=== PATIENT | male | born 1945 | race Caucasian/White ===

== ENCOUNTER 2019-05-17 18:28 | Emergency (ER) | payer OTHER ==
[~2019-05-17] VITALS: Ht 182.9 cm; Wt 117.9 kg
[~2019-05-17 18:28] MED LIST: ASTAXANTHIN4 MG PO; Aspirin EC81 MG PO; CO Q10200 MG PO; DILTIAZEM 24HR120 MG PO; IBUP800 PO; LOVA40 PO; Multiple Vitam1 EAC1 PO; PANT40 PO; Viagra100 MG PO; Zestril40 MG PO
[2019-05-17 19:18] LABS: BASOPHILS ABSOLUTE AUTO 0.05 K/mm3 (0.00-0.23); BASOPHILS PERCENT AUTO 0 % (0-2); EOSINOPHILS ABSOLUTE AUTO 0.05 K/mm3 (0.00-0.68); EOSINOPHILS PERCENT AUTO 0 % (0-6); Hematocrit 45.8 % (37.0-53.0); Hemoglobin 14.9 g/dL (13.5-17.5); IMMATURE GRAN ABSOLUTE AUTO 0.05 K/mm3 (0.00-0.10); IMMATURE GRAN PERCENT AUTO 0 % (0-1); LYMPHOCYTES ABSOLUTE AUTO 0.88 K/mm3 (0.84-5.20); LYMPHOCYTES PERCENT AUTO 8 % (21-46); MONOCYTES ABSOLUTE AUTO 0.62 K/mm3 (0.16-1.47); MONOCYTES PERCENT AUTO 5 % (4-13); Mean Corpuscular HGB 29.2 pg (26.0-34.0); Mean Corpuscular HGB Conc 32.5 g/dL (31.5-36.5); Mean Corpuscular Volume 90 fL (80-100); Mean Platelet Volume 9.5 fL (9.1-12.4); NEUTROPHILS PERCENT AUTO 86 % (41-73); Platelet Count 269 K/mm3 (150-400); RDW Coefficient Variation 14.2 % (11.7-14.2); RDW Standard Deviation 47.2 fL (35.1-46.3); Red Blood Cell Count 5.11 M/mm3 (4.30-5.90); White Blood Cell Count 11.75 K/mm3 (4.00-11.30)
[2019-05-17 19:37] LABS: Alanine Aminotransfer (ALT/SGP 45 U/L (12-78); Albumin, Blood 3.8 g/dL (3.4-5.0); Alk Phos 127 U/L (50-136); Anion Gap 6 mmol/L (6-16); Aspartate Aminotrans (AST/SGOT 27 U/L (12-37); Bilirubin, Total 0.3 mg/dL (0.1-1.0); Blood Urea Nitrogen 19 mg/dL (8-24); Bun/Creatinine Ratio 26.4 (12.0-20.0); CO2, Blood 24 mmol/L (21-32); Chloride, Blood 112 mmol/L (98-108); Creatinine, Blood 0.72 mg/dL (0.60-1.20); Globulin, Blood 3.9 g/dL (2.2-4.0); Glomerular Filtration Rate >60 (60-); Glucose, Blood 134 mg/dL (70-99); Sodium, Blood 142 mmol/L (136-145); Total Protein, Blood 7.7 g/dL (6.4-8.2)
[2019-05-17 21:59] LABS: Source, Urine Voided
[2019-05-17 22:02] LABS: Bilirubin, Urine Neg (Neg); Blood, Urine 3+ (Neg); Glucose Qualitative, Urine Neg (Neg); Ketones, Urine Neg (Neg); Leukocyte Esterase, Urine Neg (Neg); Nitrite, Urine Neg (Neg); Protein, Urine Neg (Neg); Urobilinogen, Urine 1+ (Normal)
[2019-05-17 22:27] LABS: Appearance, Urine Clear (Clear); Color, Urine Yellow (P-Yellow); White Blood Cells, Urine 0-2 /hpf (0-5)
[2019-05-17 22:28] LABS: Bacteria Few /hpf; Calcium Oxalate Crystals Mod /hpf; Mucus Light (0-Heavy); Squamous Epithelial Cells Not Seen /hpf (Few)
[2019-05-17] MEDS ORDERED: Norco 5-325 Ta1 EACH PO (22:54)
[2019-05-17] MEDS ORDERED: IBUP600 PO (22:54)
[2019-05-17] MEDS ORDERED: Flomax0.4 MG PO (22:54)
== END 2019-05-17 23:15 | disposition home or self-care (01) ==
LOC: ER 18:28
PROVIDERS: Student in an Organized Health Care Education/Training Program
DX: N13.2 Hydronephrosis with renal and ureteral calculous obstruction (principal); Z79.899 Other long term (current) drug therapy; Z79.82 Long term (current) use of aspirin; F17.200 Nicotine dependence, unspecified, uncomplicated
CPT/HCPCS: 36415; 74176; 80053; 81001; 83690; 85025; 96361; 96374; 96375; 99284-25; A9270; A9270-GY; J1885; J2405; J3010; J7030

== ENCOUNTER 2020-07-17 08:24 | Day surgery (SDC) | payer BC ==
[~2020-07-17] VITALS: Ht 182.9 cm; Wt 15.4 kg
[~2020-07-17 08:24] MED LIST changes: +Aspir 8181 MG PO; +DILT120 PO; +Flomax0.4 MG PO; +IBUP600 PO; +LISI20 PO; +MULTIVITAMINS1 EAC3 PO; +Norco 5-325 Ta1 EACH PO; +PRAV20 PO; +SILD50TA PO
== END 2020-07-17 10:28 | disposition home or self-care (01) ==
LOC: ORSCSDS 08:24
PROVIDERS: Surgery
PROC: 0DJD8ZZ Inspection of Lower Intestinal Tract, Via Natural or Artificial Opening Endoscopic (ICD-10-PCS; principal; 2020-07-17 09:45)
DX: Z12.11 Encounter for screening for malignant neoplasm of colon (principal); Z85.038 Personal history of other malignant neoplasm of large intestine; Z86.010 Personal history of colon polyps; I10 Essential (primary) hypertension; E78.5 Hyperlipidemia, unspecified; Z79.82 Long term (current) use of aspirin; Z79.899 Other long term (current) drug therapy; F17.210 Nicotine dependence, cigarettes, uncomplicated
CPT/HCPCS: J2704; J7120

== ENCOUNTER → 2021-12-30 | Outpatient (CLI) | payer BC | END | disposition home or self-care (01) | LOC: LAB SHORT 11:15 → LAB 11:15 | DX: L02.219 Cutaneous abscess of trunk, unspecified (principal) | CPT/HCPCS: 87070; 87205 ==

== ENCOUNTER → 2022-01-09 | Outpatient (CLI) | payer BC | END | disposition home or self-care (01) | LOC: LAB SHORT 12:11 → PLD 12:11 | DX: L72.9 Follicular cyst of the skin and subcutaneous tissue, unspecified (principal) | CPT/HCPCS: 88304 ==

== ENCOUNTER → 2022-01-22 | Outpatient (CLI) | payer BC | END | disposition home or self-care (01) | LOC: LAB SHORT 14:51 → PLD 14:51 | DX: L72.9 Follicular cyst of the skin and subcutaneous tissue, unspecified (principal) | CPT/HCPCS: 88304 ==

== ENCOUNTER → 2022-02-24 | Outpatient (CLI) | payer BC | END | disposition home or self-care (01) | LOC: LAB 07:58 → LAB SHORT 07:58 → PLD 07:58 | DX: D48.5 Neoplasm of uncertain behavior of skin (principal) | CPT/HCPCS: 88304 ==

== ENCOUNTER → 2023-03-10 | Outpatient (CLI) | payer BC, MEDICARE | END | disposition home or self-care (01) | LOC: LAB 12:59 → LAB SHORT 12:59 | DX: L72.0 Epidermal cyst (principal) | CPT/HCPCS: 88304 ==

== ENCOUNTER 2023-07-02 11:09 | Day surgery (SDC) | payer MEDICARE, BC ==
[~2023-07-02] VITALS: Ht 182.9 cm; Wt 101.9 kg
[2023-07-02] MEDS ORDERED: TAMSULOSIN HCL0.4 M1 PO (11:53)
[2023-07-02] MEDS ORDERED: PANTOPRAZOLE SO40 M2 PO (11:53)
--- NOTE | 2023-07-02 12:07 | NUR ---
07/02/23 1207 Lior Diggs CORRECT EYE MARKED PER PATIENT AND CONSENT LEFT EYE . TETRACAINE PLACED IN LEFT EYE AT 1150. PLEGET PLACED IN LEFT EYE AT 1151. PT TOLERATED WELL. CALL LIGHT PLACED IN PT HAND.
[2023-07-02 13:17] VITALS: BP 154/87
== END 2023-07-02 13:26 | disposition home or self-care (01) ==
LOC: ORSCSDS 11:09
PROVIDERS: Ophthalmology
PROC: 08RK3JZ Replacement of Left Lens with Synthetic Substitute, Percutaneous Approach (ICD-10-PCS; principal; 2023-07-02 12:30)
DX: H25.12 Age-related nuclear cataract, left eye (principal); H52.202 Unspecified astigmatism, left eye; H35.30 Unspecified macular degeneration; I10 Essential (primary) hypertension; K21.9 Gastro-esophageal reflux disease without esophagitis; F17.210 Nicotine dependence, cigarettes, uncomplicated; J44.9 Chronic obstructive pulmonary disease, unspecified; E66.9 Obesity, unspecified; Z85.46 Personal history of malignant neoplasm of prostate; Z68.30 Body mass index [BMI] 30.0-30.9, adult; Z79.82 Long term (current) use of aspirin; Z79.899 Other long term (current) drug therapy
CPT/HCPCS: J2250; J3010; J3301; J7040; V2632

== ENCOUNTER 2023-07-16 11:02 | Day surgery (SDC) | payer MEDICARE, BC ==
[~2023-07-16] VITALS: Ht 185.4 cm; Wt 100.3 kg
[~2023-07-16 11:02] MED LIST changes: +PANTOPRAZOLE SO40 M2 PO; +TAMSULOSIN HCL0.4 M1 PO
--- NOTE | 2023-07-16 11:51 | NUR ---
07/16/23 1151 Sujey Goodwin 1 DROP OF TETRACAINE TO THE R EYE AT 1142, PLEDGET PLACED AT 1144 BY [facility]
[2023-07-16 13:28] VITALS: BP 164/93
--- NOTE | 2023-07-16 13:28 | NUR ---
07/16/23 1328 Anabel Steward IV OUT, WNL, PT TOLERATED
== END 2023-07-16 13:36 | disposition home or self-care (01) ==
LOC: ORSCSDS 11:02
PROVIDERS: Ophthalmology
PROC: 08RJ3JZ Replacement of Right Lens with Synthetic Substitute, Percutaneous Approach (ICD-10-PCS; principal; 2023-07-16 12:30)
DX: H25.11 Age-related nuclear cataract, right eye (principal); Z96.1 Presence of intraocular lens; H52.201 Unspecified astigmatism, right eye; H21.81 Floppy iris syndrome; H35.30 Unspecified macular degeneration; K21.9 Gastro-esophageal reflux disease without esophagitis; I10 Essential (primary) hypertension; F17.210 Nicotine dependence, cigarettes, uncomplicated; Z79.82 Long term (current) use of aspirin; Z79.899 Other long term (current) drug therapy
CPT/HCPCS: J2250; J3010; J3301; J7040; V2632

== ENCOUNTER 2024-10-06 11:38 | Emergency (ER) | payer MEDICARE, BC ==
[~2024-10-06] VITALS: Ht 188 cm; Wt 99.8 kg
[~2024-10-06 11:38] MED LIST changes: +DILTIAZEM 24HR300 M2 PO; +GABA100 PO; +LOSA50 PO; +NUBEQA300 MG PO
[2024-10-06 14:19] LABS: Hematocrit 27.7 % (37.0-53.0); Hemoglobin 8.5 g/dL (13.5-17.5); Mean Corpuscular HGB 29.6 pg (26.0-34.0); Mean Corpuscular HGB Conc 30.7 g/dL (31.5-36.5); Mean Corpuscular Volume 97 fL (80-100); Mean Platelet Volume 9.7 fL (9.1-12.4); NRBC ABSOLUTE 0.56 K/mm3 (0.00-0.02); NRBC Auto 12.2 /100 WBC (0.0-0.2); RDW Coefficient Variation 16.9 % (11.7-14.2); RDW Standard Deviation 59.5 fL (35.1-46.3); Red Blood Cell Count 2.87 M/mm3 (4.30-5.90); White Blood Cell Count 4.58 K/mm3 (4.00-11.30)
[2024-10-06 14:37] LABS: Albumin, Blood 2.9 g/dL (3.4-5.0); Albumin/Globulin Ratio 0.7 (0.8-1.8); BAND PERCENT MAN 8 % (0-8); BASOPHILS ABSOLUTE MAN 0.09 K/mm3 (0.00-0.23); BASOPHILS PERCENT MAN 2 % (0-2); Bilirubin, Total 0.5 mg/dL (0.1-1.0); Bun/Creatinine Ratio 19.5 (12.0-20.0); Calcium, Blood 8.6 mg/dL (8.5-10.1); Creatinine, Blood 0.92 mg/dL (0.60-1.20); EOSINOPHILS PERCENT MAN 0 % (0-6); Globulin, Blood 4.3 g/dL (2.2-4.0); LYMPHOCYTES ABSOLUTE MAN 1.19 K/mm3 (0.84-5.20); LYMPHOCYTES PERCENT MAN 26 % (21-46); METAMYELOCYTE ABSOLUTE MAN 0.09 K/mm3 (0.00-0.00); METAMYELOCYTE PERCENT MAN 2 % (0-0); MONOCYTES ABSOLUTE MAN 0.09 K/mm3 (0.16-1.47); MONOCYTES PERCENT MAN 2 % (4-13); MYELOCYTE ABSOLUTE MAN 0.13 K/mm3 (0.00-0.00); MYELOCYTE PERCENT MAN 3 % (0-0); NEUTROPHILS ABSOLUTE MAN 2.97 K/mm3 (1.96-9.15); Potassium, Blood 4.8 mmol/L (3.5-5.5); SEG NEUTROPHILS PERCENT MAN 57 % (41-73); TOTAL CELLS COUNTED 100; Total Protein, Blood 7.2 g/dL (6.4-8.2)
[2024-10-06 14:41] LABS: Platelet Count 68 K/mm3 (150-400)
[2024-10-06] MEDS ORDERED: IRON FOLATE PL1 EACH PO (15:25)
[2024-10-06 16:00] VITALS: BP 134/89
== END 2024-10-06 16:11 | disposition home or self-care (01) ==
LOC: ER 11:38
PROVIDERS: Emergency Medicine
DX: D64.9 Anemia, unspecified (principal); R53.1 Weakness; R41.82 Altered mental status, unspecified; F17.200 Nicotine dependence, unspecified, uncomplicated; Z79.899 Other long term (current) drug therapy
CPT/HCPCS: 70450; 80053; 85025; 93005; 93010; 99285-25

== ENCOUNTER → 2024-10-17 | Outpatient (CLI) | payer MEDICARE, BC ==
[~2024-10-17] MED LIST changes: +IRON FOLATE PL1 EACH PO
[2024-10-17 11:08] LABS: Hematocrit 27.7 % (37.0-53.0); Hemoglobin 8.7 g/dL (13.5-17.5); Mean Corpuscular HGB 29.9 pg (26.0-34.0); Mean Corpuscular HGB Conc 31.4 g/dL (31.5-36.5); Mean Corpuscular Volume 95 fL (80-100); Mean Platelet Volume 10.3 fL (9.1-12.4); NRBC ABSOLUTE 1.37 K/mm3 (0.00-0.02); NRBC Auto 21.4 /100 WBC (0.0-0.2); RDW Coefficient Variation 17.5 % (11.7-14.2); RDW Standard Deviation 59.3 fL (35.1-46.3); Red Blood Cell Count 2.91 M/mm3 (4.30-5.90); White Blood Cell Count 6.39 K/mm3 (4.00-11.30)
[2024-10-17 11:38] LABS: Platelet Count 50 K/mm3 (150-400)
[2024-10-17 11:46] LABS: BAND PERCENT MAN 10 % (0-8); BASOPHILS ABSOLUTE MAN 0.06 K/mm3 (0.00-0.23); BASOPHILS PERCENT MAN 1 % (0-2); BLASTS PERCENT MAN 2 % (0-0); EOSINOPHILS ABSOLUTE MAN 0.06 K/mm3 (0.00-0.68); EOSINOPHILS PERCENT MAN 1 % (0-6); LYMPHOCYTES ABSOLUTE MAN 1.02 K/mm3 (0.84-5.20); LYMPHOCYTES PERCENT MAN 16 % (21-46); METAMYELOCYTE ABSOLUTE MAN 0.06 K/mm3 (0.00-0.00); METAMYELOCYTE PERCENT MAN 1 % (0-0); MONOCYTES ABSOLUTE MAN 0.38 K/mm3 (0.16-1.47); MONOCYTES PERCENT MAN 6 % (4-13); MYELOCYTE ABSOLUTE MAN 0.06 K/mm3 (0.00-0.00); MYELOCYTE PERCENT MAN 1 % (0-0); NEUTROPHILS ABSOLUTE MAN 4.53 K/mm3 (1.96-9.15); PROMYELOCYTE ABSOLUTE MAN 0.06 K/mm3 (0.00-0.00); PROMYELOCYTE PERCENT MAN 1 % (0-0); SEG NEUTROPHILS PERCENT MAN 61 % (41-73); TOTAL CELLS COUNTED 100
[2024-10-17 12:13] LABS: Albumin/Globulin Ratio 0.7 (0.8-1.8); Bilirubin, Total 0.5 mg/dL (0.1-1.0); Bun/Creatinine Ratio 31.2 (12.0-20.0); Calcium, Blood 8.4 mg/dL (8.5-10.1); Creatinine, Blood 0.93 mg/dL (0.60-1.20); Globulin, Blood 4.4 g/dL (2.2-4.0); Potassium, Blood 4.5 mmol/L (3.5-5.5); Total Protein, Blood 7.4 g/dL (6.4-8.2)
== END | disposition home or self-care (01) ==
LOC: LAB 10:20 → LAB SHORT 10:20
PROVIDERS: Internal Medicine Hematology & Oncology
DX: C61 Malignant neoplasm of prostate (principal)
CPT/HCPCS: 80053; 85025

== ENCOUNTER 2024-10-28 10:08 | Inpatient (IN) | payer MEDICARE, BC ==
[~2024-10-28] VITALS: Ht 185.4 cm; Wt 97.9 kg
[2024-10-28 11:04] LABS: Hematocrit 24.6 % (37.0-53.0); Hemoglobin 7.7 g/dL (13.5-17.5); Mean Corpuscular HGB 29.8 pg (26.0-34.0); Mean Corpuscular HGB Conc 31.3 g/dL (31.5-36.5); Mean Corpuscular Volume 95 fL (80-100); NRBC ABSOLUTE 1.82 K/mm3 (0.00-0.02); NRBC Auto 12.1 /100 WBC (0.0-0.2); RDW Standard Deviation 60.7 fL (35.1-46.3); Red Blood Cell Count 2.58 M/mm3 (4.30-5.90); White Blood Cell Count 15.01 K/mm3 (4.00-11.30)
[2024-10-28 11:41] LABS: Albumin, Blood 3.1 g/dL (3.4-5.0); Albumin/Globulin Ratio 0.9 (0.8-1.8); Bilirubin, Total 0.8 mg/dL (0.1-1.0); Bun/Creatinine Ratio 22.2 (12.0-20.0); Calcium, Blood 8.1 mg/dL (8.5-10.1); Creatinine, Blood 0.86 mg/dL (0.60-1.20); Globulin, Blood 3.3 g/dL (2.2-4.0); Potassium, Blood 4.6 mmol/L (3.5-5.5); Total Protein, Blood 6.4 g/dL (6.4-8.2)
[2024-10-28] MEDS ORDERED: DILT120ERA PO (11:47)
[2024-10-28] MEDS ORDERED: ASPIR 8181 M1 PO (11:48)
[2024-10-28] MEDS ORDERED: Crestor40 MG PO (11:48)
[2024-10-28] MEDS ORDERED: IBUP800 PO (11:48)
[2024-10-28] MEDS ORDERED: ACET500 PO (11:49)
[2024-10-28 11:51] LABS: BAND PERCENT MAN 12 % (0-8); BASOPHILS PERCENT MAN 0 % (0-2); EOSINOPHILS PERCENT MAN 0 % (0-6); LYMPHOCYTES PERCENT MAN 8 % (21-46); METAMYELOCYTE ABSOLUTE MAN 0.15 K/mm3 (0.00-0.00); METAMYELOCYTE PERCENT MAN 1 % (0-0); MONOCYTES ABSOLUTE MAN 0.75 K/mm3 (0.16-1.47); MONOCYTES PERCENT MAN 5 % (4-13); MYELOCYTE PERCENT MAN 6 % (0-0); SEG NEUTROPHILS PERCENT MAN 68 % (41-73); TOTAL CELLS COUNTED 100
[2024-10-28 11:52] LABS: Influenza A, PCR NEGATIVE (NEGATIVE); Influenza B, PCR NEGATIVE (NEGATIVE); Resp Syncytial Virus, PCR NEGATIVE (NEGATIVE); SARS-Cov-2 (COVID-19) PCR, MMC NEGATIVE (NEGATIVE)
[2024-10-28] MEDS ORDERED: NS 1,000 ML IV SCH (11:55)
[2024-10-28 12:04] LABS: Platelet Count 16 K/mm3 (150-400)
[2024-10-28 12:08] LABS: IMMATURE RETIC FRACTION 40.6 % (2.3-16.0); RETIC HGB EQUIVALENT 30.6 pg (28.20-36.60); RETICULOCYTE ABSOLUTE 0.1097 M/mm3 (0.0200-0.1100); RETICULOCYTE COUNT PERCENT 4.22 % (0.50-2.50)
[2024-10-28] MEDS ORDERED: CefTRIAXone Sodium 1,000 MG in NS 100 ML IV ONE (13:40)
[2024-10-28 14:30] LABS: Source, Urine Clean Catch
[2024-10-28 14:34] LABS: Bilirubin, Urine Neg (Neg); Blood, Urine Neg (Neg); Color, Urine Yellow (P-Yellow); Glucose Qualitative, Urine Neg (Neg); Ketones, Urine Neg (Neg); Leukocyte Esterase, Urine Neg (Neg); Nitrite, Urine Neg (Neg); Protein, Urine 2+ (Neg); Specific Gravity, Urine 1.015 (1.003-1.022); Urobilinogen, Urine NORM (Normal)
[2024-10-28] MEDS ORDERED: Polyethylene Glycol 3350 17 gm PO PRN (14:35)
[2024-10-28] MEDS ORDERED: FLU VACC TS2024-25(6MOS UP)/PF 45 MCG/0.5 ML SYRINGE IM SCH (14:35)
[2024-10-28] MEDS ORDERED: Acetaminophen 500 MG Tab PO PRN (14:35)
[2024-10-28 14:44] LABS: Appearance, Urine Hazy (Clear)
[2024-10-28 14:45] LABS: Amorphous Light (0-Heavy); Hyaline Casts 0-2 /lpf (0-2); Mucus Mod (0-Heavy)
[2024-10-28 14:55] LABS: Bacteria Mod /hpf; Squamous Epithelial Cells Few /hpf (Few)
[2024-10-28 16:59] VITALS: BP 124/47
--- NOTE | 2024-10-28 17:06 | NUR ---
ADMISSION NOTE: PATIENT ARRIVED TO THE UNIT AT 1635 VIA GURNEY AND WAS TRANSFERRED ONTO THE BED. PATIENT ALERT AND ORIENTED, PATIENT'S ARRIVED AT BEDSIDE. PATIENT SETTLED IN BED. HE IS IN BED, CALL LIGHT WITHIN REACH, AT BEDSIDE, NO SIGNS OR SYMPTOMS OF DISTRESS, PLAN OF CARE ONGOING.
[2024-10-28] MEDS ORDERED: MAGNESIUM OXID500 MG PO (17:12)
[2024-10-28] MEDS ORDERED: B COMPLEX FORM0.4 MG PO (17:12)
[2024-10-28] MEDS ORDERED: MELATONIN5 M1 PO (17:13)
[2024-10-28] MEDS ORDERED: THERA-D2000 UNIT PO (17:14)
[2024-10-28 19:12] VITALS: BP 123/60
[2024-10-28] MEDS ORDERED: dilTIAZem HCL 120 MG CAP.CD PO SCH (21:00)
[2024-10-28] MEDS ORDERED: Tamsulosin HCl 0.4 MG Cap PO SCH (21:00)
[2024-10-28] MEDS ORDERED: Docusate Sodium/Senna 1 Tab PO SCH (21:00)
[2024-10-29] VITALS (8 sets, daily range): BP systolic 103–122; BP diastolic 57–73
--- NOTE | 2024-10-29 03:38 | NUR ---
SHIFT SUMM: PT IS A PLEASANT 79 YO DNI WHO WAS ADMITTED FOR SEPSIS. PT IS ON BEDREST FOR WEAKNESS AND HAS BED ALARM SET. PT USES BEDSIDE URINAL BUT NEEDS TOTAL CARE WHEN URINATING. PT SOMETIMES CALLS AND IS CONT BUT INCONT AT NIGHT AND ATTENDS ARE ON. PT IS AWAITING PALLATIVE CARE CONSULT AND PT/OT.PT HAD AN INCONT BM AND I CHANGED COCCYX MEPILEX. PT ALSO HAD MEPILEX FOR PREV. ON L HIP AND L FOOT.PT HAS BEEN RESTING MOST OF EVENING AND HAS CALL LIGHT IN REACH.
[2024-10-29] MEDS ORDERED: Pantoprazole Sodium 40 MG Tab PO SCH (06:00)
[2024-10-29 06:45] LABS: Hematocrit 21.1 % (37.0-53.0); Hemoglobin 6.7 g/dL (13.5-17.5); Mean Corpuscular HGB 29.9 pg (26.0-34.0); Mean Corpuscular HGB Conc 31.8 g/dL (31.5-36.5); Mean Corpuscular Volume 94 fL (80-100); NRBC ABSOLUTE 1.15 K/mm3 (0.00-0.02); NRBC Auto 9.8 /100 WBC (0.0-0.2); RDW Standard Deviation 58.3 fL (35.1-46.3); Red Blood Cell Count 2.24 M/mm3 (4.30-5.90); White Blood Cell Count 11.74 K/mm3 (4.00-11.30)
[2024-10-29 06:50] LABS: Platelet Count 15 K/mm3 (150-400)
[2024-10-29 07:34] LABS: Albumin, Blood 2.8 g/dL (3.4-5.0); Anion Gap 12 mmol/L (3-11); Blood Urea Nitrogen 21 mg/dL (8-24); Bun/Creatinine Ratio 22.2 (12.0-20.0); CO2, Blood 16 mmol/L (21-32); Calcium, Blood 7.6 mg/dL (8.5-10.1); Chloride, Blood 111 mmol/L (98-108); Creatinine, Blood 0.95 mg/dL (0.60-1.20); Ferritin, Serum 1660 ng/mL (26-388); Glomerular Filtration Rate 80 (60-); Glucose, Blood 117 mg/dL (70-99); Phosphorus, Blood 2.6 mg/dL (2.5-4.9); Potassium, Blood 4.4 mmol/L (3.5-5.5); Sodium, Blood 135 mmol/L (136-145); Thyroxine (T4) 6.1 ug/dL (4.5-12.1)
[2024-10-29] MEDS ORDERED: Aspirin 81 MG TabEC PO SCH (09:00)
[2024-10-29] MEDS ORDERED: Losartan Potassium 50 MG Tab PO SCH (09:00)
[2024-10-29] MEDS ORDERED: Cholecalciferol 1000 Unit Tablet (=25MCG) PO SCH (09:00)
[2024-10-29] MEDS ORDERED: Enoxaparin 40 MG/0.4 ML SYR SC SCH (09:00)
[2024-10-29] MEDS ORDERED: NS 250 ML IV PRN (10:50)
[2024-10-29] MEDS ORDERED: CefTRIAXone Sodium 1,000 MG in NS 100 ML IV SCH (12:00)
--- NOTE | 2024-10-29 16:25 | NUR ---
SHIFT SUMMARY: PATIENT RECEIVED 1 UNIT OF PRBC TODAY; TOLERATED WELL. HE CONTINUES TO BE WEAK AND WAS NOT ABLE TO GET UP OUT OF BED WITH PHYSICAL THERAPY TODAY. HE IS IN BED, RESTING POST TRANSFUSING, NO SIGNS OR SYMPTOMS OF DISTRESS, CALL LIGHT WITIN REACH, AND BED ALARM SET, PLAN OF CARE ONGOING.
--- NOTE | 2024-10-30 03:11 | NUR ---
PT SLEPT WELL THIS SHIFT. VS WNL, PT STILL FEELS WEEK, BUT STATES FEELING BETTER. PT RECIEVED 1 UNIT PRBC ON 10/28. AWAITING AM LABS, PT STATES HIS NEXT ROUND OF CHEMO IS IN 9 DAYS.
[2024-10-30 03:53] VITALS: BP 122/65
[2024-10-30 07:16] VITALS: BP 114/61
[2024-10-30 09:47] LABS: Hematocrit 25.3 % (37.0-53.0); Hemoglobin 8.2 g/dL (13.5-17.5); Mean Corpuscular HGB Conc 32.4 g/dL (31.5-36.5); Mean Corpuscular Volume 93 fL (80-100); RDW Coefficient Variation 18.4 % (11.7-14.2); RDW Standard Deviation 58.7 fL (35.1-46.3); Red Blood Cell Count 2.73 M/mm3 (4.30-5.90); White Blood Cell Count 12.28 K/mm3 (4.00-11.30)
[2024-10-30 10:06] LABS: Platelet Count 13 K/mm3 (150-400)
[2024-10-30 16:14] VITALS: BP 116/62
--- NOTE | 2024-10-30 18:00 | NUR ---
SHIFT SUMMARY PT CONT LEVEL OF CARE WITH NO ACUTE CHANGES NOTED. PT IS A&OX4 AND ASSIST X1 WITH REPOSITIONING. PT CONT TO REMAIN BEDREST HAS HE IS TO WEAK TO GET UP OUT OF BED. PT NOTED TO BE AT BEDSIDE MOST OF THIS SHIFT. PT HGB NOTED TO INCREASE. PLT COUNT NOTED TO BE 13 PHYSICIAN NOTED WITH NO NEW ORDERS AT THIS TIME. PT CONT TO UTILIZE THE MALE PUREWICK THIS SHIFT AND REPOSITIONED Q2HR.
[2024-10-30 19:43] VITALS: BP 110/64
[2024-10-30] MEDS ORDERED: Melatonin 5 MG Tablet PO PRN (22:00)
[2024-10-31 03:07] VITALS: BP 117/70
--- NOTE | 2024-10-31 06:24 | NUR ---
SHIFT SUMMARY PT REQUESTS SOMETHING TO HELP HIM SLEEP. CALLED DR. RICHARD 2138, NO ANSWER. TRIED CALLING AGAIN 2145. STILL NO ANSWER. DR. RICHARD ORDERED 5MG MELATONIN QHS PRN. PT HAD MEDICATION AND WENT TO SLEEP. PT WOKE APPROX 0100 ASKING FOR WATER. PT NOW LYING DOWN RESTING COMFORTABLY. 0220, PT HAD BM. BRIEF AND PUREWIC CHANGED. CANISTER EMPTIED. 950ML OUTPUT. PT LYING IN BED RESTING PEACEFULLY. PT TOOK MORNING MEDICATIONS PER EMAR. PT TRYING TO GO BACK TO SLEEP.
[2024-10-31 07:44] VITALS: BP 119/62
[2024-10-31 08:34] LABS: Hemoglobin 8.2 g/dL (13.5-17.5); Mean Corpuscular HGB 29.9 pg (26.0-34.0); Mean Corpuscular HGB Conc 32.8 g/dL (31.5-36.5); Mean Corpuscular Volume 91 fL (80-100); NRBC ABSOLUTE 0.92 K/mm3 (0.00-0.02); NRBC Auto 7.3 /100 WBC (0.0-0.2); RDW Standard Deviation 57.5 fL (35.1-46.3); Red Blood Cell Count 2.74 M/mm3 (4.30-5.90); White Blood Cell Count 12.64 K/mm3 (4.00-11.30)
[2024-10-31 08:57] LABS: Platelet Count 13 K/mm3 (150-400)
[2024-10-31] MEDS ORDERED: Tiotropium Bromide 2.5 MCG/ACT MIST INHAL (10 ACT/4 GM) INH SCH (15:05)
[2024-10-31] MEDS ORDERED: Mometasone/Formoterol MDI 200/5 mcg 13 GM INH SCH (15:15)
[2024-10-31 15:18] VITALS: BP 109/55
--- NOTE | 2024-10-31 17:23 | NUR ---
SHIFT SUMMARY PT CONT LEVEL OF CARE. PT NOTED TO WORK WITH THERAPY FOR A SMALL AMOUNT OF TIME TODAY BEFORE HAVING TO STOP D/T DYSPNEA. PHYSICIAN PLACED NEW ORDERS TO TRY AND HELP WITH DYSPNEA. PT DID REFUSE TO GO TO SNF AND WILL PLAN TO DC HOME WITH HOME HEALTH. CASE MANAGEMENT IS WORKING WITH PT TO GATHER A SAFE DC PLAN.
[2024-10-31 20:04] VITALS: BP 120/64
--- NOTE | 2024-11-01 04:05 | NUR ---
SHIFT SUMMARY ADMITTED FOR SEPSIS. DNI CODE. FUTURE PLAN OF CARE TO BE DECIDED TODAY. HE HAS DYSPNEA WITH EXERTION. HE IS ON RA. EMPIRIC ANTIB RX ARE SCHEDULED. A&O X4. REGULAR DIET. HE IS ON BEDREST DUE TO THE SEVERE DYSPNEA. BLOOD CULTURES NEGATIVE. DR. GOODRICH IS ONCOLOGY CONSULT. LAST CHEMO GIVEN 13 DAYS AGO, NEXT ONE DUE 11/07. 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 HE LIVES WITH AT HOME. PLATELETS -13, AWAITING MORNING LABS.
[2024-11-01 04:26] VITALS: BP 100/58
[2024-11-01 08:10] VITALS: BP 114/70
[2024-11-01 14:51] VITALS: BP 105/53
--- NOTE | 2024-11-01 19:07 | NUR ---
SHIFT SUMMARY PHYSICAL THERAPY CAME BY AND ENCOURAGED PATIENT TO GET UP OOB WITH MEALS AND USE THE BATHROOM. WICKING SYSTEM REMOVED AND PATIENT GOT UP TO CHAIR FOR DINNER FOR ABOUT 2 HOURS BEFORE GETTING BACK IN BED. CONTINENT URINAL AT BEDSIDE, URGENCY. MEPILEX PLACED ON HEELS. AND MEPILEX TO COCCYX REPLACED. INCONTINET SMALL BOWEL MOVEMENT TODAY.
[2024-11-01 20:00] VITALS: BP 109/63
[2024-11-02 03:32] VITALS: BP 108/62
--- NOTE | 2024-11-02 04:30 | NUR ---
NOC SUMMARY- NO NEW ISSUES. PT HAD NO COMPLAINTS. PT HAS SLEPT IN NO DISTRESS. PT BRIEF CHANGED NEEDED. PT TURNS SELF IN BED. PT CALL APPROPIATELY. CALL LIGHT IN REACH.
[2024-11-02 07:30] VITALS: BP 98/61
[2024-11-02] MEDS ORDERED: CENTRUM SILVER1 EAC2 PO (11:39)
[2024-11-02] MEDS ORDERED: SENN187 PO (11:40)
--- NOTE | 2024-11-02 14:18 | NUR ---
DISCHARGE SUMMARY: A&Ox4. PLEASANT AND COOPERATIVE WITH CARE. CALLS APPROPRIATELY AND IS ABLE TO ADVOCATE NEEDS EFFECTIVELY. 2PA c FWW. INCONTINENT x2. LBM "A FEW DAYS AGO" PER PATIENT REPORT. MEDS WHOLE WITH FLUIDS. NO C/O PAIN OR DISCOMFORT THIS SHIFT. 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 MEDICATIONS FAXED TO [facility]. INSTRUCTED TO FOLLOW-UP WITH DR KEY AND DR PAL SCHEDULED. LEFT FLOOR AT 1415 WITH ALL BELONGINGS AND DISCHARGE PACKET, ESCORTED BY , WHO IS ALSO PROVIDING TRANSPORTATION.
== END 2024-11-02 14:21 | disposition home health service (06) | DRG 809 ==
LOC: ER 10:08 → MEDS 14:30 → ENPENDDIS 11-02 14:03 → MEDS 11-02 14:21
PROVIDERS: Emergency Medicine; Internal Medicine Hematology & Oncology; ADMIT Internal Medicine
PROC: 30233N1 Transfusion of Nonautologous Red Blood Cells into Peripheral Vein, Percutaneous Approach (ICD-10-PCS; principal; 2024-10-29)
DX: D61.810 Antineoplastic chemotherapy induced pancytopenia (principal); C79.51 Secondary malignant neoplasm of bone; R64 Cachexia; E87.20 Acidosis, unspecified; R65.10 Systemic inflammatory response syndrome (SIRS) of non-infectious origin without acute organ dysfunction; C61 Malignant neoplasm of prostate; I10 Essential (primary) hypertension; Z85.038 Personal history of other malignant neoplasm of large intestine; I95.9 Hypotension, unspecified; E78.5 Hyperlipidemia, unspecified; F17.210 Nicotine dependence, cigarettes, uncomplicated; K21.9 Gastro-esophageal reflux disease without esophagitis; Z98.890 Other specified postprocedural states; J44.9 Chronic obstructive pulmonary disease, unspecified; Z79.82 Long term (current) use of aspirin; Z79.899 Other long term (current) drug therapy; I25.10 Atherosclerotic heart disease of native coronary artery without angina pectoris; Z68.27 Body mass index [BMI] 27.0-27.9, adult
CPT/HCPCS: 0241U; 36415; 36430; 71046; 80053; 80069; 81001; 82728; 83605; 83880; 84145; 84153; 84436; 84443; 85025; 85027; 85045; 86850; 86900; 86901; 86923; 87040; 87086; 93005; 93010; 94640; 94664; 94760; 96361; 96365; 97110; 97110-CQ; 97163; 97165; 97530; 99285-25; A9270; J0696; J7030; J7050; P9016

== ENCOUNTER → 2024-11-07 | Outpatient (CLI) | payer MEDICARE, BC ==
[~2024-11-07] MED LIST changes: +ACET500 PO; +ACETAMINOPHEN500 M2 PO; +ASPI81CH PO; +ASPIR 8181 M1 PO; +B COMPLEX FORM0.4 MG PO; +CARTIA XT120 M1 PO; +CENTRUM SILVER1 EAC2 PO; +Crestor 20 mg tablet PO; +Crestor40 MG PO; +DAILY-VITE1 EAC1 PO; +DILT120ERA PO; +FLOMAX0.4 MG PO; +IBU800 MG PO; -LOSA50 PO; +LOSARTAN POTAS100 M1 PO; +LOSARTAN POTAS100 MG PO; +MAGNESIUM OXID400 M1 PO; +MAGNESIUM OXID500 MG PO; +MELA3 PO; +OMEP20ER PO; +PSYLLIUM FIBER0.4 GM PO; +SENN187 PO; +UBID10 PO; +Vitamin D PO; +Vitamin D1000 UNI1 PO
[2024-11-07 11:56] LABS: Hematocrit 20.8 % (37.0-53.0); Hemoglobin 6.6 g/dL (13.5-17.5); Mean Corpuscular HGB 29.7 pg (26.0-34.0); Mean Corpuscular HGB Conc 31.7 g/dL (31.5-36.5); Mean Corpuscular Volume 94 fL (80-100); Mean Platelet Volume 13.1 fL (9.1-12.4); NRBC ABSOLUTE 0.72 K/mm3 (0.00-0.02); NRBC Auto 11.2 /100 WBC (0.0-0.2); RDW Coefficient Variation 18.1 % (11.7-14.2); RDW Standard Deviation 59.6 fL (35.1-46.3); Red Blood Cell Count 2.22 M/mm3 (4.30-5.90); White Blood Cell Count 6.42 K/mm3 (4.00-11.30)
[2024-11-07 12:59] LABS: Platelet Count 20 K/mm3 (150-400)
[2024-11-07 13:09] LABS: BAND PERCENT MAN 28 % (0-8); BASOPHILS ABSOLUTE MAN 0.12 K/mm3 (0.00-0.23); BASOPHILS PERCENT MAN 2 % (0-2); EOSINOPHILS PERCENT MAN 0 % (0-6); LYMPHOCYTES ABSOLUTE MAN 0.38 K/mm3 (0.84-5.20); LYMPHOCYTES PERCENT MAN 6 % (21-46); METAMYELOCYTE ABSOLUTE MAN 0.06 K/mm3 (0.00-0.00); METAMYELOCYTE PERCENT MAN 1 % (0-0); MONOCYTES ABSOLUTE MAN 0.19 K/mm3 (0.16-1.47); MONOCYTES PERCENT MAN 3 % (4-13); SEG NEUTROPHILS PERCENT MAN 50 % (41-73); TOTAL CELLS COUNTED 100
[2024-11-07 13:10] LABS: MYELOCYTE ABSOLUTE MAN 0.64 K/mm3 (0.00-0.00); MYELOCYTE PERCENT MAN 10 % (0-0)
== END ==
LOC: LAB 09:58 → LAB SHORT 09:58
PROVIDERS: Family Medicine
DX: C61 Malignant neoplasm of prostate (principal); C79.51 Secondary malignant neoplasm of bone; A41.9 Sepsis, unspecified organism
CPT/HCPCS: 85025

== ENCOUNTER 2024-11-08 06:39 | Inpatient (IN) | payer MEDICARE, BC ==
[~2024-11-08] VITALS: Ht 182.9 cm; Wt 96.2 kg
[~2024-11-08 06:39] MED LIST changes: -ACETAMINOPHEN500 M2 PO; -ASPI81CH PO; -CARTIA XT120 M1 PO; -Crestor 20 mg tablet PO; -DAILY-VITE1 EAC1 PO; -FLOMAX0.4 MG PO; -IBU800 MG PO; -LOSARTAN POTAS100 M1 PO; -MAGNESIUM OXID400 M1 PO; -OMEP20ER PO; -PSYLLIUM FIBER0.4 GM PO; -UBID10 PO; -Vitamin D PO
[2024-11-08] MEDS ORDERED: Albuterol 2.5 MG/3 ML VIAL INH SCH (07:25)
[2024-11-08] MEDS ORDERED: Ipratropium/Albuterol SulF 2.5-0.5MG/3 ML Amp INH ONE (07:25)
[2024-11-08 08:34] LABS: Hematocrit 19.1 % (37.0-53.0); Mean Corpuscular HGB 29.6 pg (26.0-34.0); Mean Corpuscular HGB Conc 31.4 g/dL (31.5-36.5); Mean Corpuscular Volume 94 fL (80-100); NRBC Auto 12.7 /100 WBC (0.0-0.2); RDW Coefficient Variation 18.2 % (11.7-14.2); RDW Standard Deviation 60.2 fL (35.1-46.3); Red Blood Cell Count 2.03 M/mm3 (4.30-5.90); White Blood Cell Count 11.78 K/mm3 (4.00-11.30)
[2024-11-08 08:35] LABS: Albumin, Blood 2.8 g/dL (3.4-5.0); Albumin/Globulin Ratio 0.7 (0.8-1.8); Bilirubin, Total 0.6 mg/dL (0.1-1.0); Bun/Creatinine Ratio 27.2 (12.0-20.0); Creatinine, Blood 0.96 mg/dL (0.60-1.20); Magnesium, Blood 2.6 mg/dL (1.6-2.4); Total Protein, Blood 6.8 g/dL (6.4-8.2)
[2024-11-08 08:44] LABS: International Normalized Ratio 1.01; Prothrombin Time Results 10.8 Sec (9.7-11.5)
[2024-11-08 09:14] LABS: Bicarbonate Venous 12.9 mmol/L (24.0-30.0); PCO2 Venous 30.2 mmHg (38-42)
[2024-11-08 09:15] LABS: Base Excess Venous -16.1 mmol/L
[2024-11-08 09:35] LABS: BAND PERCENT MAN 16 % (0-8); BASOPHILS ABSOLUTE MAN 0.11 K/mm3 (0.00-0.23); BASOPHILS PERCENT MAN 1 % (0-2); BLASTS PERCENT MAN 1 % (0-0); EOSINOPHILS ABSOLUTE MAN 0.11 K/mm3 (0.00-0.68); EOSINOPHILS PERCENT MAN 1 % (0-6); LYMPHOCYTES % ATYPICAL MANUAL 1 % (0-0); LYMPHOCYTES ABSOLUTE MAN 1.64 K/mm3 (0.84-5.20); LYMPHOCYTES PERCENT MAN 13 % (21-46); METAMYELOCYTE ABSOLUTE MAN 0.35 K/mm3 (0.00-0.00); METAMYELOCYTE PERCENT MAN 3 % (0-0); MONOCYTES ABSOLUTE MAN 0.47 K/mm3 (0.16-1.47); MONOCYTES PERCENT MAN 4 % (4-13); MYELOCYTE ABSOLUTE MAN 0.94 K/mm3 (0.00-0.00); MYELOCYTE PERCENT MAN 8 % (0-0); NEUTROPHILS ABSOLUTE MAN 8.01 K/mm3 (1.96-9.15); SEG NEUTROPHILS PERCENT MAN 52 % (41-73); TOTAL CELLS COUNTED 100
[2024-11-08] MEDS ORDERED: Lactated Ringer's 1,000 ML IV ONE (09:40)
[2024-11-08] MEDS ORDERED: NS 1,000 ML IV SCH (09:45)
[2024-11-08 09:48] LABS: Mean Platelet Volume 11.9 fL (9.1-12.4)
[2024-11-08 09:51] LABS: Platelet Count 31 K/mm3 (150-400)
[2024-11-08 09:53] LABS: Adenovirus Not Detected (NOT DETECT); Bordetella pertussis Not Detected (NOT DETECT); Chlamydophila pneumoniae Not Detected (NOT DETECT); Coronavirus 229E Not Detected (NOT DETECT); Coronavirus HKU1 Not Detected (NOT DETECT); Coronavirus NL63 Not Detected (NOT DETECT); Coronavirus OC43 Not Detected (NOT DETECT); Human Metapneumovirus Not Detected (NOT DETECT); Human Rhinovirus/Enterovirus Not Detected (NOT DETECT); Influenza A/2009-H1 Not Detected (NOT DETECT); Influenza A/H1 Not Detected (NOT DETECT); Influenza A/H3 Detected (NOT DETECT); Influenza B Not Detected (NOT DETECT); Mycoplasma pneumoniae Not Detected (NOT DETECT); Parainfluenza Virus 1 Not Detected (NOT DETECT); Parainfluenza Virus 2 Not Detected (NOT DETECT); Parainfluenza Virus 3 Not Detected (NOT DETECT); Parainfluenza Virus 4 Not Detected (NOT DETECT); Respiratory Syncytial Virus Not Detected (NOT DETECT); SARS-Cov-2 (COVID-19), BioFire Not Detected (NOT DETECT)
[2024-11-08] MEDS ORDERED: FLU VACC TS2024-25(6MOS UP)/PF 45 MCG/0.5 ML SYRINGE IM SCH (10:35)
[2024-11-08] MEDS ORDERED: Oseltamivir Phosphate 75 MG Cap PO SCH ×2 (11:30→21:00)
[2024-11-08] MEDS ORDERED: ACETAMINOPHEN500 M2 PO (11:35)
[2024-11-08] MEDS ORDERED: CARTIA XT120 M1 PO (11:36)
[2024-11-08] MEDS ORDERED: IBU800 MG PO (11:37)
[2024-11-08] MEDS ORDERED: LOSARTAN POTAS100 M1 PO (11:38)
[2024-11-08] MEDS ORDERED: MAGNESIUM OXID400 M1 PO (11:39)
[2024-11-08] MEDS ORDERED: Acetaminophen 500 MG Tab PO PRN (11:40)
[2024-11-08] MEDS ORDERED: DAILY-VITE1 EAC1 PO ×2 (11:40)
[2024-11-08] MEDS ORDERED: PANT40 PO (11:41)
[2024-11-08] MEDS ORDERED: Crestor 20 mg tablet PO (11:42)
[2024-11-08] MEDS ORDERED: SENN187 PO (11:43)
[2024-11-08] MEDS ORDERED: FLOMAX0.4 MG PO ×2 (11:44)
[2024-11-08] MEDS ORDERED: Vitamin D PO (11:45)
[2024-11-08 12:53] LABS: Source, Urine Straight Cath
[2024-11-08 13:05] LABS: Appearance, Urine Clear (Clear); Bilirubin, Urine Neg (Neg); Blood, Urine Neg (Neg); Color, Urine Yellow (P-Yellow); Glucose Qualitative, Urine Neg (Neg); Ketones, Urine 1+ (Neg); Leukocyte Esterase, Urine Neg (Neg); Nitrite, Urine Neg (Neg); Protein, Urine 2+ (Neg); Urobilinogen, Urine NORM (Normal)
[2024-11-08 13:44] LABS: Bacteria Many /hpf; Mucus Light (0-Heavy); Squamous Epithelial Cells Few /hpf (Few)
[2024-11-08] MEDS ORDERED: ASPI81CH PO ×2 (15:30)
[2024-11-08] MEDS ORDERED: PSYLLIUM FIBER0.4 GM PO ×2 (15:31)
[2024-11-08] MEDS ORDERED: UBID10 PO ×2 (15:31)
[2024-11-08 15:45] VITALS: BP 134/64
--- NOTE | 2024-11-08 15:47 | NUR ---
NURSING PCU DAYSHIFT: Assumed care of pt at approx 1430. Arrived from ER via gurney accompanied by RN and spouse. Xfer to unit bed using slider sheet. A/O, very pleasant, cooperative w/care. Able to discuss medical history and express needs. C/O 7/10 chronic back pain. Skin pale w/scattered scabs/bruising, pressure wound to coccyx, photos completed and mepilex placed. Tele place, NSR, no c/o CP/pressure, no noted edema. 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 Abd moderately distended which pt states is normal, BT+, incontinent of urine, attends in place. PIV x2, 2 unit of RBC infusing as per d/o. No s/s of acute distress. Spouse at bedside, med rec completed. RT in room for assessment. PG placed by peer RN. Call light in reach and pt was able to demonstrate use. Resting comfortably in bed. Cont to monitor for changes.
[2024-11-08 16:40] VITALS: BP 136/64
--- NOTE | 2024-11-08 17:55 | NUR ---
NURSING PCU DAYSHIFT SUMMARY: No significant changes noted t/o the shift. 2nd unit of PRBC's completed, tolerated well, VS remain stable. CL diet started, oncology consult called per d/o, BC and additional labs drawn. 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 Pt currently sitting up in bed watching TV. Denies any current needs or questions. Call light in reach. Cont to monitor until rpt is given to NOC RN.
[2024-11-08 18:18] LABS: Hematocrit 24.6 % (37.0-53.0); Hemoglobin 8.2 g/dL (13.5-17.5)
[2024-11-08] MEDS ORDERED: Sennosides 8.6 MG Tab PO SCH (21:00)
[2024-11-08] MEDS ORDERED: Rosuvastatin Calcium 10 MG Tab PO SCH (21:00)
[2024-11-08] MEDS ORDERED: dilTIAZem HCL 120 MG CAP.CD PO SCH (21:00)
[2024-11-08 21:11] VITALS: BP 134/68
[2024-11-09] VITALS (10 sets, daily range): BP systolic 111–141; BP diastolic 57–85
[2024-11-09 04:29] LABS: Hematocrit 21.7 % (37.0-53.0); Hemoglobin 7.3 g/dL (13.5-17.5); Mean Corpuscular HGB 29.8 pg (26.0-34.0); Mean Corpuscular HGB Conc 33.6 g/dL (31.5-36.5); Mean Platelet Volume 9.3 fL (9.1-12.4); NRBC ABSOLUTE 0.85 K/mm3 (0.00-0.02); RDW Coefficient Variation 16.6 % (11.7-14.2); RDW Standard Deviation 50.9 fL (35.1-46.3); Red Blood Cell Count 2.45 M/mm3 (4.30-5.90); White Blood Cell Count 6.54 K/mm3 (4.00-11.30)
[2024-11-09 04:41] LABS: Mean Corpuscular Volume 89 fL (80-100)
[2024-11-09 04:43] LABS: Platelet Count 22 K/mm3 (150-400)
[2024-11-09 04:53] LABS: BAND PERCENT MAN 10 % (0-8); BASOPHILS PERCENT MAN 0 % (0-2); BLASTS PERCENT MAN 1 % (0-0); EOSINOPHILS ABSOLUTE MAN 0.06 K/mm3 (0.00-0.68); EOSINOPHILS PERCENT MAN 1 % (0-6); LYMPHOCYTES ABSOLUTE MAN 0.85 K/mm3 (0.84-5.20); LYMPHOCYTES PERCENT MAN 13 % (21-46); METAMYELOCYTE ABSOLUTE MAN 0.19 K/mm3 (0.00-0.00); METAMYELOCYTE PERCENT MAN 3 % (0-0); MONOCYTES ABSOLUTE MAN 0.13 K/mm3 (0.16-1.47); MONOCYTES PERCENT MAN 2 % (4-13); MYELOCYTE ABSOLUTE MAN 0.06 K/mm3 (0.00-0.00); MYELOCYTE PERCENT MAN 1 % (0-0); NEUTROPHILS ABSOLUTE MAN 5.16 K/mm3 (1.96-9.15); SEG NEUTROPHILS PERCENT MAN 69 % (41-73); TOTAL CELLS COUNTED 100
[2024-11-09 05:06] LABS: Albumin, Blood 2.4 g/dL (3.4-5.0); Albumin/Globulin Ratio 0.7 (0.8-1.8); Bilirubin, Total 0.5 mg/dL (0.1-1.0); Bun/Creatinine Ratio 37.8 (12.0-20.0); Calcium, Blood 7.7 mg/dL (8.5-10.1); Creatinine, Blood 0.82 mg/dL (0.60-1.20); Globulin, Blood 3.6 g/dL (2.2-4.0); Potassium, Blood 4.6 mmol/L (3.5-5.5)
[2024-11-09] MEDS ORDERED: Pantoprazole Sodium 40 MG Tab PO SCH ×2 (06:00→16:30)
--- NOTE | 2024-11-09 06:26 | NUR ---
PT STABLE THROUGHOUT SHIFT, VITAL SIGNS WNL, PT ABLE TO BE ON ROOM AIR. PT AOX4, ABLE TO USE CALL LIGHT AND MAKE NEEDS KNOWN. PT IS WEAK BUT DOES ATTEMPT TO HELP WITH BED MOBILITY UPON REPOSITIONING AND BRIEF CHANGES. PT DID HAVE A LARGE INCONTINENT, LOOSE, BROWN BM. SACRAL DRESSING CHANGED. PT REPOSITIONED FREQUENTLY. PT CONTINUES TO HAVE NON PRODUCTIVE LOOSE, MOIST COUGH. PUREWICK IN PLACE AND GOOD URINARY OUTPUT. PT WAS ABLE TO FEED SELF CLEAR LIQUIDS. POWER GLIDE CONTINUES TO DRAW AND FLUSH WELL.
[2024-11-09] MEDS ORDERED: Magnesium Oxide 400 MG Tab PO SCH (09:00)
[2024-11-09] MEDS ORDERED: Multivitamins 1 Tab PO SCH (09:00)
[2024-11-09] MEDS ORDERED: Heparin Sodium 5000 Units/ML 1ML MDV SC SCH (09:00)
[2024-11-09] MEDS ORDERED: Cholecalciferol 1000 Unit Tablet (=25MCG) PO SCH (09:00)
[2024-11-09 10:35] LABS: Hematocrit 21.1 % (37.0-53.0); Mean Corpuscular HGB 29.3 pg (26.0-34.0); Mean Corpuscular HGB Conc 33.2 g/dL (31.5-36.5); Mean Corpuscular Volume 88 fL (80-100); Mean Platelet Volume 9.4 fL (9.1-12.4); NRBC ABSOLUTE 0.68 K/mm3 (0.00-0.02); NRBC Auto 10.9 /100 WBC (0.0-0.2); RDW Coefficient Variation 16.8 % (11.7-14.2); RDW Standard Deviation 52.7 fL (35.1-46.3); Red Blood Cell Count 2.39 M/mm3 (4.30-5.90); White Blood Cell Count 6.26 K/mm3 (4.00-11.30)
[2024-11-09 10:43] LABS: Platelet Count 21 K/mm3 (150-400)
[2024-11-09] MEDS ORDERED: NS 250 ML IV PRN (11:10)
[2024-11-09 15:07] LABS: Stool Occult Blood Guaiac 1 Pos (Neg)
--- NOTE | 2024-11-09 15:16 | NUR ---
Transfer note. Pt transferred to medical floor rm [id number]. All belongings were taken with Pt. Family aware of transfer. Blood infusion was completed prior to transfer. Pt tolerated transfusion well.
--- NOTE | 2024-11-09 15:40 | NUR ---
DR. LEIGH NOTIFIED OF STOOL OCCULT BLOOD RESULT.
--- NOTE | 2024-11-09 17:53 | NUR ---
PATIENT IS ALERT AND ORIENTED AND COOPERATIVE WITH CARE. TRANSFERRED TO MEDICAL FLOOR FROM PCU THIS AFTERNOON. INCONTINENT OF BOWL AND BLADDER. MALE PUREWICK IN PLACE. UNABLE TO REPOSITION HIMSELF IN BED, Q2H TURNS WITH PILLOWS BY STAFF. ON RA. MEPILEX ON COCCYX. C/O LOW BACK PAIN, HEATING PAD IN PACE AND PATIENT STATES IT IS HELPNG. WAS AT THE BEDSIDE ON TRANSFER TO MEDICAL FLOOR BUT HAS SINCE LEFT. WILL CONTINUE TO MONITOR
[2024-11-09] MEDS ORDERED: Losartan Potassium 25 MG Tab PO SCH (18:00)
[2024-11-10 04:25] VITALS: BP 111/60
[2024-11-10 05:50] LABS: Hematocrit 23.3 % (37.0-53.0); Hemoglobin 7.8 g/dL (13.5-17.5); Mean Corpuscular HGB 29.7 pg (26.0-34.0); Mean Corpuscular HGB Conc 33.5 g/dL (31.5-36.5); Mean Corpuscular Volume 89 fL (80-100); NRBC ABSOLUTE 0.66 K/mm3 (0.00-0.02); NRBC Auto 10.4 /100 WBC (0.0-0.2); RDW Coefficient Variation 16.6 % (11.7-14.2); RDW Standard Deviation 52.8 fL (35.1-46.3); Red Blood Cell Count 2.63 M/mm3 (4.30-5.90); White Blood Cell Count 6.35 K/mm3 (4.00-11.30)
[2024-11-10 06:22] LABS: Platelet Count 22 K/mm3 (150-400)
[2024-11-10 06:23] LABS: Albumin, Blood 2.3 g/dL (3.4-5.0); Albumin/Globulin Ratio 0.7 (0.8-1.8); Bilirubin, Total 0.5 mg/dL (0.1-1.0); Bun/Creatinine Ratio 40.6 (12.0-20.0); Calcium, Blood 8.1 mg/dL (8.5-10.1); Creatinine, Blood 0.79 mg/dL (0.60-1.20); Globulin, Blood 3.5 g/dL (2.2-4.0); Potassium, Blood 4.2 mmol/L (3.5-5.5); Total Protein, Blood 5.8 g/dL (6.4-8.2)
--- NOTE | 2024-11-10 07:00 | NUR ---
SHIFT SUMMARY AT START OF SHIFT, PT EXPRESSED HE WAS READY FOR BED. THIS RN MEDICATED HIM WITH HIS 2100 MEDICATIONS, PER EMAR, AND PT TURNED OUT LIGHTS AND WENT TO SLEEP. 2146, TELEMETRY CALLED, AND PT HAD A 10-BEAT RUN OF VTACH, BUT AUTO CONVERTED. PT SLEEPING SOUNDLY WITH NO SIGNS OF DISTRESS. 2299, PT STILL RUNNING SR AT 86-94. PT STILL SLEEPING SOUNDLY. APPROX 0215, PT WOKE ASKING TO BE REPOSITIONED FOR COMFORT MEASURES. MORNING LABS DRAWN VIA PG APPROX 0525. PG STILL DRAWS WELL. END REPLACED. 06, HEMATOLOGY CALLED WITH CRITICAL LOW PLT OF 22. KENIA RN (CHARGE) AND DR. MEJIA NOTIFIED.
[2024-11-10 07:03] LABS: BAND PERCENT MAN 6 % (0-8); BASOPHILS ABSOLUTE MAN 0.06 K/mm3 (0.00-0.23); BASOPHILS PERCENT MAN 1 % (0-2); BLASTS PERCENT MAN 2 % (0-0); EOSINOPHILS ABSOLUTE MAN 0.06 K/mm3 (0.00-0.68); EOSINOPHILS PERCENT MAN 1 % (0-6); LYMPHOCYTES ABSOLUTE MAN 0.38 K/mm3 (0.84-5.20); LYMPHOCYTES PERCENT MAN 6 % (21-46); METAMYELOCYTE ABSOLUTE MAN 0.12 K/mm3 (0.00-0.00); METAMYELOCYTE PERCENT MAN 2 % (0-0); MONOCYTES ABSOLUTE MAN 0.44 K/mm3 (0.16-1.47); MONOCYTES PERCENT MAN 7 % (4-13); MYELOCYTE ABSOLUTE MAN 0.25 K/mm3 (0.00-0.00); MYELOCYTE PERCENT MAN 4 % (0-0); NEUTROPHILS ABSOLUTE MAN 4.82 K/mm3 (1.96-9.15); PROMYELOCYTE ABSOLUTE MAN 0.06 K/mm3 (0.00-0.00); PROMYELOCYTE PERCENT MAN 1 % (0-0); SEG NEUTROPHILS PERCENT MAN 70 % (41-73); TOTAL CELLS COUNTED 100
[2024-11-10 07:16] VITALS: BP 122/68
--- NOTE | 2024-11-10 09:27 | NUR ---
pt laying in bed awake, family in room, states his bottom hurts, a/ox4, samish, pleasant and cooperative with care, follows commands well, lungs are clear in upper robin, course in rest of robin, on r/a, resp even and unlabored, has a harsh nonproductive cough, hrr, tele in place running sr in the 90's per monitor, see strip, no edema noted, ppp+1, cap refill <3 sec, vs stable, afebrile, power glide to luigi, site is clear and patent, btx4, abd flat soft nontender, voids via male purwick, skin has wound to buttocks mepilex in place, he is a lift to get oob, vivien, call light in reach.
--- NOTE | 2024-11-10 12:18 | NUR ---
Pt indicates he wants to go home with hospice, and Judy states she is in agreement. CM notified, will touch base with them. Both pt and state they want to go home "sooner than later."
[2024-11-10] MEDS ORDERED: Promethazine HCl 25 MG Supp PR PRN (12:35)
[2024-11-10] MEDS ORDERED: Scopolamine Hydrobromide Patch TOP PRN (12:35)
[2024-11-10] MEDS ORDERED: Acetaminophen 325 MG TABLET PO PRN (12:35)
[2024-11-10] MEDS ORDERED: Ondansetron HCl 2 MG / ML 2ML Vial IV PRN (12:35)
[2024-11-10] MEDS ORDERED: Atropine Sulfate 1% Opth Soln 2ML BTL SL PRN (12:40)
[2024-11-10] MEDS ORDERED: Acetaminophen 650 MG Supp PR PRN (12:40)
[2024-11-10] MEDS ORDERED: LORazepam 1 MG Tab PO PRN (12:40)
[2024-11-10] MEDS ORDERED: Haloperidol Lactate 2 MG / ML 15ML BTL PO PRN (12:40)
[2024-11-10] MEDS ORDERED: LORazepam 2 MG/ML 1ML Injection IV PRN (12:40)
[2024-11-10] MEDS ORDERED: Morphine Sulfate 20 MG/1ML 1 ML Oral Syringe PO PRN (12:55)
[2024-11-10] MEDS ORDERED: LOSARTAN POTAS100 M1 PO (15:08)
[2024-11-10] MEDS ORDERED: OMEP20ER PO ×2 (15:09)
--- NOTE | 2024-11-10 16:12 | NUR ---
"Spiritual Care Visit Attempted | Palliative Nurse Request Pt. is awake in bed. Spouse is at bedside when they initally welcomed my visit. After introductions, the Pt. requested if this color shop helper could return at a different time. Pt. welcomed this color shop helper to return tomorrow."
--- NOTE | 2024-11-10 17:54 | NUR ---
PT PLEASANT TODAY NO C/O PAIN FOR ME. PT REFUSED HEART MED THIS JAYLYN. HE IS ON COMFORT CARE. STATES IS ABLE TO GO HOME TOMORROW ON HOSPICE. FAMILY IN TO VISIT MUCH OF MY SHIFT. PT NOW RESTING PEACEFULLY, BED IN LOW POSITION, CALL LITE IN REACH, CALLS APPROP
[2024-11-11] MEDS ORDERED: Omeprazole 20 MG CapCR PO SCH (06:00)
--- NOTE | 2024-11-11 06:10 | NUR ---
SHIFT SUMMARY PT IS COMFORT CARE, ANTICIPATING D/C WITH HOSPICE TODAY. SLEPT LONG INTERVALS THROUGH THE NIGHT. REPOSITIONED OFTEN FOR COMFORT. PT C/O BACK PAIN AND DIFFICULTY STAYING COMFORTABLE WHEN AWAKE, BUT REFUSING MULTIPLE OFFERS OF BOTH PAIN MEDICATION AND LORAZEPAM. MEPELEX INTACT TO COCCYX. MALE PUREWICK INTACT AND DRAINING. BED IN LOWEST POSITION, CALL LIGHT WITHIN REACH, SIDE RAILS UP X3.
== END 2024-11-11 13:11 | disposition hospice, home (50) | DRG 811 ==
LOC: ER 06:39 → MEDS 11:08 → ERHOLD 11:08 → MEDS 11:08 → PCU 14:25 → MEDS 11-09 14:59 → ENPENDDIS 11-11 11:34 → MEDS 11-11 13:11
PROVIDERS: Family Medicine; Student in an Organized Health Care Education/Training Program; ADMIT Internal Medicine
PROC: 30233N1 Transfusion of Nonautologous Red Blood Cells into Peripheral Vein, Percutaneous Approach (ICD-10-PCS; principal; 2024-11-08)
DX: D62 Acute posthemorrhagic anemia (principal); J10.01 Influenza due to other identified influenza virus with the same other identified influenza virus pneumonia; J96.01 Acute respiratory failure with hypoxia; Z66 Do not resuscitate; Z51.5 Encounter for palliative care; C79.51 Secondary malignant neoplasm of bone; R64 Cachexia; E87.21 Acute metabolic acidosis; C77.2 Secondary and unspecified malignant neoplasm of intra-abdominal lymph nodes; D61.818 Other pancytopenia; C61 Malignant neoplasm of prostate; I25.10 Atherosclerotic heart disease of native coronary artery without angina pectoris; I10 Essential (primary) hypertension; E78.5 Hyperlipidemia, unspecified; D64.9 Anemia, unspecified; R53.81 Other malaise; D69.59 Other secondary thrombocytopenia; T45.1X5A Adverse effect of antineoplastic and immunosuppressive drugs, initial encounter; Z85.038 Personal history of other malignant neoplasm of large intestine; Z90.49 Acquired absence of other specified parts of digestive tract; Z86.73 Personal history of transient ischemic attack (TIA), and cerebral infarction without residual deficits; Z87.891 Personal history of nicotine dependence; Z79.82 Long term (current) use of aspirin; Z79.899 Other long term (current) drug therapy; Z68.35 Body mass index [BMI] 35.0-35.9, adult
CPT/HCPCS: 0202U; 36415; 36430; 71045; 71260; 80053; 81001; 82272; 82803; 83605; 83735; 84145; 85014; 85018; 85025; 85027; 85610; 85730; 86850; 86900; 86901; 86923; 87040; 87086; 93005; 93010; 94644; 94664; 94762; 96360-59; 99285-25; A9270; C1751; J7030; J7050; J7120; P9016; Q9967